=== PATIENT | male | born 1965 | race Two or more races ===

== ENCOUNTER 2021-01-15 17:39 | Emergency (ER) | payer MEDICAID ==
[~2021-01-15] VITALS: Ht 170.2 cm; Wt 81.6 kg
[2021-01-15 19:39] VITALS: BP 132/68
[2021-01-15] MEDS ORDERED: LIDOCAINE 1% INJ 50 ML MDV IJ ONE (19:39)
== END 2021-01-15 20:41 | disposition home or self-care (01) ==
LOC: ER 18:12
DX: S61.210A Laceration without foreign body of right index finger without damage to nail, initial encounter (principal); I10 Essential (primary) hypertension; E78.00 Pure hypercholesterolemia, unspecified; W26.8XXA Contact with other sharp object(s), not elsewhere classified, initial encounter; Y93.89 Activity, other specified; Y92.89 Other specified places as the place of occurrence of the external cause; Y99.8 Other external cause status
CPT/HCPCS: 12001; 99282; A6403; J3490